=== PATIENT | female | born 1985 | race Caucasian/White ===

== ENCOUNTER 2017-03-03 21:32 | Emergency (ER) | payer BC, OTHER ==
[2017-03-03] MEDS ORDERED: IBUPROFEN 400 MG TABLET (FP) PO ONE ×2 (21:47)
--- NOTE | 2017-03-03 21:50 | PDOC ---
History of Present Illness - General Chief Complaint: Chest Pain Stated Complaint: CHEST PAIN Time Seen by Provider: 03/03/17 21:46 History Source: Patient - History of Present Illness Timing/Duration: other (12 hours) Severity: moderate Associated Symptoms: reports: chest pain. denies: cough, fever/chills, headaches, nausea/vomiting Past History - Past Medical History Allergies/Adverse Reactions: Allergies Allergy/AdvReac Type Severity Reaction Status Date / Time No Known Allergies Allergy Verified 03/03/17 21:34 Home Medications: Ambulatory Orders Bupropion HCl [Wellbutrin -] 150 mg PO DAILY 03/03/17 Escitalopram Oxalate [Lexapro -] 5 mg PO DAILY 03/03/17 Psychiatric Problems: Yes (ANXIETY) - Immunization History Immunization Up to Date: Yes (09/08) - Psycho/Social/Smoking Cessation Hx Anxiety: Yes Suicidal Ideation: No Smoking History: Never smoked Have you smoked in the past 12 months: No Information on smoking cessation initiated: No Hx Alcohol Use: Yes (OCCAS.) Drug/Substance Use Hx: No Substance Use Type: None Review of Systems - Review of Systems All Other Systems: Reviewed and Negative *Physical Exam - Vital Signs Last Vital Signs Temp Pulse Resp BP Pulse Ox 97.9 F 65 16 151/98 100 03/03/17 21:37 03/03/17 21:37 03/03/17 21:37 03/03/17 21:37 03/03/17 21:37 - Physical Exam General Appearance: Yes: Nourished HEENT: positive: Normal Voice Respiratory/Chest: positive: Lungs Clear Cardiovascular: positive: Regular Rhythm Gastrointestinal/Abdominal: positive: Normal Bowel Sounds Lymphatic: negative: Adenopathy Musculoskeletal: positive: Normal Inspection Extremity: positive: Normal Capillary Refill. negative: Calf Tenderness Integumentary: positive: Normal Color Neurologic: positive: Fully Oriented Medical Decision Making - Medical Decision Making 03/03/17 22:05 sinus at 60. Nl axis. Nl intervals. No ischemic findings 03/04/17 04:59 CXR: nl, as read by me, referred to rads fro definitive mgmt a/p pleurisy perc- nsaids *DC/Admit/Observation/Transfer Diagnosis at time of Disposition: Pleurisy - Discharge Dispostion Disposition: HOME Condition at time of disposition: Stable - Patient Instructions Printed Discharge Instructions: DI for Pleurisy Additional Instructions: Take ibuprofen (motrin) as needed for pain
[2017-03-03 21:52] VITALS: PULSE 65; TEMP 97.9; BMI 21.9
[2017-03-03 22:08] VITALS: BP 104/65
--- NOTE | 2017-03-05 13:45 | EKG ---
Test Reason : Blood Pressure : / mmHG Vent. Rate : 060 BPM Atrial Rate : 060 BPM P-R Int : 116 ms QRS Dur : 074 ms QT Int : 456 ms P-R-T Axes : 018 048 045 degrees QTc Int : 456 ms NORMAL SINUS RHYTHM NORMAL ECG NO PREVIOUS ECGS AVAILABLE BASELINE ARTIFACT Confirmed by NOEL BOYLE, KAYLEEN ([id number]) on 03/05/2017 1:45:02 PM Referred By: BE Confirmed By:KAYLEEN COHEN MD
== END 2017-03-03 22:09 | disposition home or self-care (01) ==
LOC: FER 21:32
DX: R09.1 Pleurisy (principal); F41.9 Anxiety disorder, unspecified
CPT/HCPCS: 71020-TC; 93005; 93010; 99281-25